=== PATIENT | male | born 1975 | race Caucasian/White ===

== ENCOUNTER 2023-12-04 20:20 | Inpatient (IN) | payer OTHER, SELFPAY ==
[2023-12-04] VITALS (8 sets, daily range): BP systolic 153–205; BP diastolic 85–110; BMI 35.1
--- NOTE | 2023-12-04 16:58 | ED.GENMED ---
History of Present Illness
General
Chief Complaint: Chest Pain
Source: patient
Exam Limitations: none
Time Seen by Provider: 12/04/23 16:45
Travel History
Have you had any contact with someone who has COVID-19?: No
Do you have any symptoms of coronavirus? Fever > 100 degrees, chills, cough, shortness of breath, sore throat, loss of taste or smell, muscle aches, or headache?: No
History of Present Illness
History of Present Illness:
See MDM
Past History
Past History
ED Past Medical History: HTN and NIDDM
ED Past Surgical History: None
Social History
Tobacco: Non-smoker
Alcohol: None
Phy Exam
Physical Exam
Physical Exam:
See MDM
Scores
Heart Score for Chest Pain Patients
STEMI patient?: No
History: Slightly or Non-Suspicious
ECG: Normal
Age: >45 - <65 years
Risk Factors: 1 or 2 Risk Factors
Troponin: </= Normal Limit
Heart Score for Chest Pain Patients: 2
Heart Score Risk: 2.5% MACE over next 6 weeks
Course
Orders/Labs/Results
Orders:
Orders
12/04/23 15:13
EKG [Electrocardiogram (*1)] Urgent
Reason for Study: Chest Pain
EKG- Treatment ONCE
12/04/23 16:58
CT Head W/o Iv Contrast Urgent
Comment:
Reason For Exam: unsteady gate, weakness
12/04/23 17:00
Complete Blood Count/With Diff Urgent
Comprehensive Metabolic Panel Urgent
Troponin I Urgent
12/04/23 18:29
HydrALAZINE [Apresoline] 10 mg IV NOW STA
12/04/23 19:09
Consult Neurology [NEUROLOGY CONSULT] Routine
Consulting Provider: Yandel Jamil
Was physician already notified: Yes
Abnormal Lab Results
12/04/23
17:00
MCV 77.6 L fL
(80.0-94.0)
Glucose 173 H mg/dl
(70-99)
12/04/23 17:00
12/04/23 17:00
Vital Signs
Initial and Last Documented VS:
Initial Vital Signs
Temp Pulse BP Pulse Ox
98 F 74 205/110 100
12/04/23 15:14 12/04/23 15:14 12/04/23 15:14 12/04/23 15:14
Last Documented Vital Signs
Temp Pulse Resp BP Pulse Ox
98 F 79 15 153/85 97
12/04/23 15:14 12/04/23 19:00 12/04/23 19:00 12/04/23 19:00 12/04/23 19:00
MDM/Problems Addressed
Differential Diagnosis Includes:
HPI and MDM Narrative:
48-year-old male presenting with chest pain and neurologic complaints. Patient states the chest pain is on the left side of his chest. There is no exertional component. Patient also complaining of an unsteady gait. Patient states he has been
walking and noticed that his legs have felt heavy. states he has had a wobbly gait for the past few days. Patient also complaining of dropping things when he was holding them. He denies headache. He is unsure if this is related to
uncontrolled diabetes
Given his history and complaint, will obtain basic blood work and CT head
Physical exam
General: Well appearing and non-toxic
HEENT: protecting airway
Neck: appears supple
CV: No evidence of cyanosis. Regular rate and rhythm
Resp: No accessory muscle use. Lungs clear
Abd: Non-distended
Extremities: No deformities
Neuro: alert. Decreased patellar reflexes bilaterally. Muscle strength and sensation intact to all 4 extremities. Negative Romberg
Psych: Normal affect
Skin: Intact
Problems Addressed including Acute and Chronic Conditions affecting care:
1. Chest pain
Acuity: acute
Prognosis: stable
Details: Will obtain troponin. EKG is nonischemic
2. Unsteady gait
Acuity: acute
Prognosis: stable
Details: Will obtain CT head and discussed case with neuro
3. Hypertension
Acuity: acute
Prognosis: unstable
Details: Patient given dose of IV hydralazine
Updates
Blood pressure improving with IV hydralazine. CT head negative. Case discussed with neurology. Will admit for MRI brain and C-spine
Differential Diagnosis (but not limited to): Guillain-Mejia� syndrome, MS, noncardiac chest pain
Testing considered: MRI brain
Drug therapy (if applicable): OTC meds, please see d/c instruction regarding Rx drugs
Amount and/or Complexity of Data Reviewed
Clinical info obtained from: Patient
External data reviewed: N/A
Labs I independently reviewed (but not limited to): Hyperglycemia
Radiology: The CT scan was personally and independently reviewed. In addition, official CT report reviewed.
Pulse Ox: not hypoxic
EKG independently reviewed: Sinus rhythm, normal axis, no STEMI
Supervisor Cell Operation: Sinus rhythm
Critical Care: The high probability of a clinically significant, sudden or life threatening deterioration of the cardiovascular system(s) required my full and direct attention, intervention and personal management. The aggregate critical care time
was 33 minutes. This time is in addition to time spent performing reported procedures but includes the following:
[x] Data Review and interpretation
[x] Patient assessment and monitoring of vital signs
[x] Documentation
[x] Medication orders and management
Risk of Complication:
Social Determinants of health: Good social support
Discussed with other providers: Neurology, hospitalist
Escalation of Care includes Admit/Obs: Given his exam and complaints, will admit for neurology evaluation and MRI
Occasional wrong word or 'sound a like' substitutions may have occurred due to the inherent limitations of voice recognition software. Read the chart carefully and recognize, using context, where substitutions have occurred.
*Critical Care Note
Total Time (30-74mins, 75-104mins- exclusive of procedures): 33 min
ED Attending Note
-
Portions of this chart may have been created with voice recognition software.� Occasional wrong word or��sound alike� substitutions may have occurred due to the inherent limitations of voice recognition software.
Discharge Plan
Departure
Patient Disposition: Admit
Date of Disposition: 12/04/23
Time of Disposition: 19:11
Admit to: Telemetry
Presentation/result/management discussed w/ accepting MD/DO: Hospitalist
Discharge Problem:
Abnormal gait, Benign essential HTN
Referrals:
Ector Miller MD [Family Provider] -
Interventions
Interventions:
*Risk Screen - Suicide Last Done: 12/04/23 16:56
*General Assessment Last Done: 12/04/23 16:56
*Neglect/Abuse Screening Last Done: 12/04/23 16:56
ED- Fall Risk Assessment Last Done: 12/04/23 16:58
*ED COVID-19 Vaccine History Last Done: 12/04/23 15:14
ED- Cardiac Assessment Last Done: 12/04/23 18:30
[2023-12-04 17:14] LABS: % Basophils 0.4 % (0-2); % Immature Granulocytes 0.5 % (0-0.5); % Lymphocytes 27.8 % (20.5-51.1); % Monocytes 5.1 % (1.7-9.3); % Neutrophils 61.2 % (42.2-75.2); Absolute Eosinophils 0.4 10^3/uL (0-0.7); Absolute Lymphocytes 2.1 10^3/uL (1.2-3.4); Absolute Monocytes 0.4 10^3/uL (0.1-0.6); Absolute Neutrophils 4.7 10^3/uL (1.4-6.5); Hematocrit 42.7 % (39.0-52.0); Hemoglobin 15.8 g/dL (13.0-18.0); Mean Corpuscular Hgb 28.7 pg (27.0-31.0); Mean Corpuscular Volume 77.6 fL (80.0-94.0); Mean Platelet Volume 10.1 fL (7.4-10.4); Nucleated Red Blood Cells % 0 % (-); Platelet Count 178 10^3/uL (130-400); Red Cell Dist. Width 12.4 % (11.5-14.5); White Blood Cell Count 7.6 10^3/uL (4.8-10.8)
[2023-12-04 17:34] LABS: ALT (SGPT) 28 U/L (0-50); AST (SGOT) 29 U/L (17-59); Albumin 4.7 g/dl (3.5-5.0); Alkaline Phosphatase 109 U/L (38-126); Blood Urea Nitrogen 10 mg/dl (9-20); Calcium 9.7 mg/dl (8.4-10.2); Carbon Dioxide 30 mmol/L (22-30); Chloride 103 mmol/L (98-107); Estimated Creatinine Clearance > 125 ml/min; Glucose 173 mg/dl (70-99); Sodium 138 mmol/L (135-145); Total Bilirubin 0.8 mg/dl (0.2-1.3); Total Protein 7.4 g/dl (6.3-8.2); eGFR > 60.00
[2023-12-04 17:39] LABS: Troponin I < 0.012 ng/ml
[2023-12-04] MEDS: APRESOLINE 10 MG IV (18:35)
--- NOTE | 2023-12-04 19:25 | HPS.HSE ---
Family Physician
-
Family Physician: Ector Miller
Chief Complaint
-
clumsy hands, intermittently dropping things
History of Present Illness
48M Diabetic pw several days of abnormal gait, clumsy hands , intermittently dropping things he was holding.
Legs feel heavy.
No recent infection.
Medical History
Past Medical History
Past Medical History: Reports HTN and NIDDM
Past Surgical History: Reports None
Social History
Tobacco: Non-smoker
Alcohol: None
Family History
Family History: Not pertinent
Allergies / Home Medications
Allergies reflects when Allergies were last updated in [facility].
Home Medications with original date entered in [facility]
Allergy/Medication List:
Allergies
Allergy/AdvReac Type Severity Reaction Status Date / Time
dog dander Allergy nasal Verified 12/04/23 15:20
congestion
seasonal Allergy nasal Uncoded 12/04/23 15:20
congestion
If medication reconciliation has not been performed, why?: Medication List N/A
Review of Systems
-
Constitutional: Reports No Symptoms
EENT: Reports No Symptoms
Respiratory: Reports No Symptoms
Cardiac: Reports No Symptoms
Abdomen/GI: Reports No Symptoms
: Reports No Symptoms
Musculoskeletal: Reports No Symptoms
Skin: Reports No Symptoms
Neurological: Reports See HPI
Endocrine: Reports No Symptoms
Hematologic/Lymphatic: Reports No Symptoms
Psych: Reports No Symptoms
Physical Exam
Vital Signs
Vital Signs
Temp Pulse Resp BP Pulse Ox
98 F 79 15 153/85 97
12/04/23 15:14 12/04/23 19:00 12/04/23 19:00 12/04/23 19:00 12/04/23 19:00
Physical Exam
General: Other (see below )
Laboratory Results
-
12/04/23 17:00
12/04/23 17:00
Laboratory Results
Total Bilirubin 0.8 mg/dl (0.2-1.3) 12/04/23 17:00
AST 29 U/L (17-59) 12/04/23 17:00
ALT 28 U/L (0-50) 12/04/23 17:00
Alkaline Phosphatase 109 U/L (38-126) 12/04/23 17:00
Troponin I < 0.012 ng/ml 12/04/23 17:00
Data Reviewed
-
CT Scan: Report Reviewed by me
Lab Data: Labs Reviewed by me
Impression/Plan
-
Reviewed VS: Unremarkable, noted BP 155/85
PE
Gen: NAD, not toxic looking
HEENT: anicteric, no pale conjuctiva
Neck: supple , no cx spine tenderness
Lungs: symmetric AE, no added sound
Cor: RRR S1 S2 , no mm
Abdomen: + central obesity
GROCERY BUYER: Muscle strength and sensation intact to all 4 extremities.Decreased patellar reflexes bilaterally. . Neg Rhomberg.
Gait: wide base gait
MS: no edema
Psych: appropriate
Data
nl CBC
Low MCV 77
nl BMP
nl LFTs
NE TPNI EKG ; NSR, nl EKG , no prior EKG
BG 170s
HCT
No acute intracranial abnormality noted.
ASSESSMENT & PLAN
No prior hospitalist admission
Pending Rx reconciliation
Abnormal gait, clumsy hands , intermittently dropping things -NEG HCT , unremarkable labs
DDX: Neuropathy, Radiculopathy, myelopathy vs CVA
HX chronic Cx spine pain
- start empiric baby ASA daily
- cont CABLE TELEVISION TECHNICIAN Rosuvastatin and Lisinopril
- Brain and Cx spine MRI in AM
- Labs for AM; CRP, ESR, Syphillis progressive
- PT/OT
- Neuro consult
Hyperglycemia
DMT2 on Januvia
- add ISS low
- cont CABLE TELEVISION TECHNICIAN Januvia 100 mg daily
- A1 C
HLD
- cont CABLE TELEVISION TECHNICIAN Rosuvastatin
Essential HTN
- cont CABLE TELEVISION TECHNICIAN Lisinopril 10 daily - recntly incresed by PCP from 5 mg daily
Microcytic , but not anemic
- Ferritin and Fe studies
- B12 and Folate to complete w/u but - unlikely etiolgy in view of microcytosis
Class II ( BMI 35 ) obesity on Wt loosing diet
Suspect metabolic syndrome X
DVT Px: LMWH
Code: Full
Obs TLM
[2023-12-04 21:30] LABS: Glucose - Point of Care 172 mg/dl (70-99)
--- NOTE | 2023-12-04 22:20 | PTCARENOTE ---
Rec'd pt from the ER. Walked from stretcher to the bed with standby assist. NIH performed and score of 0 was obtained. He is awake and alert. denies pain. SCDs applied as ordered. Plan for MRI tomorrow. Will continue to monitor closely.
[2023-12-05] VITALS (8 sets, daily range): BP systolic 138–171; BP diastolic 78–109; PULSE 91–93; O2SAT 97
[2023-12-05 07:50] LABS: Glucose - Point of Care 185 mg/dl (70-99)
--- NOTE | 2023-12-05 09:00 | W.PN.HOSP.TC ---
Today's Communication/Plan
-
see bold
Assessment / Plan
Assessment / Plan
#Subacute lacunar infarct
#Abnormal gait
Appreciate neurology input, brain MRI shows 1 cm nonhemorrhagic subacute lacunar infarct and 5 mm cryptic AVM in the right parietal white matter
Neurology recommends Plavix for 21 days, and aspirin 81 mg daily indefinitely
Hemoglobin A1c 10.5, LDL 69
Continue home Crestor, check MRA of the head without contrast and MRA of neck, check echocardiogram
PT/OT
#Uncontrolled type 2 diabetes
Hemoglobin A1c is 10.5
His blood sugars are in the 170s-180s on a carb controlled diet and januvia
Suspect he is noncompliant with diet
Continue Januvia, add glipizide
#Benign essential hypertension
Continue lisinopril 10 mg daily
#Obesity due to excess calories
BMI 35, affects all aspects of care
DVT prophylaxis�Lovenox
Full code
Physical Exam
General: Obese, no acute distress
HEENT: Normocephalic, Atraumatic, EOMI, MMM
Respiratory: Clear to Auscultation bilaterally
Cardiac: Normal S1/S2, Regular Rate and Rhythm
GI: Soft, Nontender, Nondistended, Normal Bowel Sounds
Extremities: No Clubbing, Cyanosis, or Edema
Anticipated Discharge: 24 - 48 hours
Subjective/Interval History
-
Date of Service: December 05, 2023
Patient reports not feeling himself. Gait continues to be off, and he feels weak in his lower extremities.
Objective Data
-
Vital Signs:
Vital Signs
Temp Pulse Resp BP Pulse Ox
98.2 F 82 18 152/80 97
12/05/23 03:10 12/05/23 03:10 12/05/23 03:10 12/05/23 03:10 02/03/24 03:10
I&O
12/04/23 12/05/23 12/06/23
06:59 06:59 06:59
Intake Total 720 / 720
Balance 720 / 720
[2023-12-05] MEDS: ZESTRIL 10 MG PO (09:01)
[2023-12-05] MEDS: JANUVIA 100 MG PO (09:01)
[2023-12-05] MEDS: LOW STRENGTH ASPIRIN 81 MG PO (09:01)
[2023-12-05] MEDS: NOVOLOG FLEXPEN-LOW RESISTANCE 1 UNITS SC ×2 (09:05→13:41)
[2023-12-05 09:23] LABS: HDL Cholesterol 41 mg/dl; Iron 100 ug/dl (49-181); LDL Cholesterol, Calculated 69 mg/dl; Total Cholesterol 137 mg/dl (50-199); Triglyceride 135 mg/dl (10-149); Very Low Density Lipoprotein 27 mg/dl (0-30)
--- NOTE | 2023-12-05 09:28 | PTCARENOTE ---
Assumed care of pt from previous nurse. pt denies pain. Pt NIH 0. Pt is on tele running nsr. Pt call davis is within reach, pt rings vinnie. will cont to monitor.
[2023-12-05 09:33] LABS: C-Reactive Protein < 5.00 mg/L (0.0-10.00); Percent Saturation 31 % (20-50); Total Iron Binding Capacity 315 ug/dl (261-462)
[2023-12-05 10:39] LABS: Folate > 20.0 ng/ml (2.76-20); Vitamin B12 705 pg/ml (239-931)
[2023-12-05 10:49] LABS: Erythrocyte Sed Rate 15 mm/hour (0-20)
[2023-12-05 11:03] LABS: Glycohemoglobin (HgbA1c) 10.5 % (4.0-5.6)
--- NOTE | 2023-12-05 11:55 | CON.NEURO4 ---
Consultation - Neurology 4
-
CONSULTING PHYSICIAN: Azeem Jamil
REFERRING PHYSICIAN: ER/Hospitalist
DICTATED BY: Azeem Jamil
DATE/TIME OF REQUEST: 12/05/23
DATE/TIME OF CONSULTATION: 12/05/23
Reason for Consultation: Sudden onset gait issues, then left hand weakness and difficulty writing
History of Present Illness:
Patient is a left handed 48-year-old male with a past medical history of kol-efbjsqt-[id number] diabetes mellitus, hypertension presented to hospital because of gait abnormalities as well as left hand incoordination and writing difficulty starting in
the middle of this past week.
Patient had been in his normal state of health until Thursday. He was working at home sitting down and he stood up and then suddenly had a sense of imbalance and that something was off with his walking ability. There is no back pain or neck pain
and no trauma with this, seem to have a bit of off balance for the rest in bed but otherwise felt fine. On the next day he began to notice that his left hand and arm began to feel somewhat strange with some numbness on the left pinky, difficulty
writing and then sometimes some occasional cramping of the left hand. He notes that he persistently still has abnormal writing with the left hand.
There has not been any speech change, acute vision change, no recent head or neck trauma.
He does report fairly frequent lower occipital area headaches which she will take NSAIDs for.
Reports he had a fall slipping on some acorns walking his dog in September and a couple of weeks after this he began to have some burning paresthesia in the right arm and leg but this abated with some meloxicam required by his PCP. No history of any
spine issues. No recent bowel or bladder function changes these have been normal.
Patient reports having diabetes and does take oral medications for this, to his knowledge does not have any complications of diabetes to the retina kidneys or any neuropathy, he had had lisinopril increased recently from 5 mg to 10 mg.
Blood pressure has been high in the ER in the low 200s systolic and 180 systolic here while admitted.
Patient has no history of stroke or heart issues.
Past Medical History: Non insulin dependent diabetes mellitus, hypertension
Surgical History: Ankle fracture repair at young age
Family History: No early CAD/NH or early stroke, grandfather with stroke and heart issues at elderly age
Social History: and lives with his , works as dental insurance coordinator, no tobacco, no significant alcohol
Allergies: No known drug allergies
Home Medications:
Review of Symptoms:
Patient denies any fever, headache, chest pain, shortness of breath, GI or symptoms.
Physical Exam:
Well-appearing middle-aged man appears his stated age, pleasant well-groomed well-nourished, no trauma to the head or neck eyes clear oropharynx is clear, neck supple full range of motion, Spurling maneuver negative, heart rate regular breathing
unlabored abdomen soft nontender no lower extremity edema
Neurologic Examination:
The patient is awake, alert and oriented x 3. He is able to follow commands and answer questions appropriately. There is no aphasia or dysarthria. On cranial nerve assessment, pupils are 3 mm bilateral, round and reactive to light and
accommodation. Visual byrd are full. Extraocular movements are intact. Facial sensations are intact and bilaterally symmetrical, there is no facial asymmetry. Hearing is intact bilaterally to normal conversation volume. Tongue palate and uvula
are midline. Sternocleidomastoid strengths are full bilaterally. Motor strengths are 5/5 bilateral upper and lower extremities on medical research [place] scale. There is no drift or involuntary movement noted. Deep tendon reflexes are 2+ bilateral
upper and lower extremities and Babinski is absent bilaterally. Sensations of pain, touch, temperature and vibration are intact and bilaterally symmetrical. There was no extinction noted on double simultaneous stimulation. Coordination is intact by
finger to nose bilaterally. Rhomberg negative.
Neuro Imaging:
CT head noncontrast unremarkable
MRI brain demonstrates an acute ischemic infarct in the right basal ganglia no hemorrhage no other chronic or acute infarcts
MRI cervical spine with no abnormal contrast-enhancement no intrinsic lesion of the cervical spine no significant cord compression is seen
Impressions
1. Acute ischemic stroke of the right basal ganglia with symptoms for starting on 12/02, then developing left hand writing difficulties and incoordination due to the stroke. Most likely etiology small vessel disease given characteristic location
in the basal ganglia, uncontrolled diabetes mellitus as well as history of hypertension.
2. History of diabetes mellitus hemoglobin A1c 10.5
3. History of essential hypertension
4.
Recommendations:
1. Goal normotension
2. Give Plavix 300 mg once now. Plan for 21 days of DAPT therapy with aspirin 81 mg daily indefinitely afterwards
3. Would start atorvastatin 10 mg daily at night
4. Neurologic checks and NIH stroke scale
5. Physical therapy occupational therapy evaluation
6. Diabetic education and diet education
7. Monitor on cardiac telemetry and check TTE
8. Not going to recommend KENNETH unless there is severe abnormalities on TTE and not going to recommend bubble study as I feel that uncontrolled diabetes mellitus and hypertension are sufficient explanations for the infarct
9. Stressed the importance of improving diabetes and blood pressure
10. Check MRA of the head without contrast and MRA of neck with contrast
Will follow
Discussed patient care with: Patient and Dr Do
NIH Stroke Score
Subsequent NIH Scale
Date of Subsequent NIH Scale: 12/05/23
Time of Subsequent NIH Scale: 11:57
NIH Stroke Score
Level of Consciousness: 0 - Alert
LOC Questions: 0-Answers both correctly
LOC Commands: 0-Performs both correctly
Best Horizontal Gaze: 0-Normal
Visual Byrd: 0=Normal, no visual loss
Facial Palsy: 0=Normal, symmetrical
Motor - Right Arm: 0=No drift 10 seconds
Motor - Left Arm: 0=No drift 10 seconds
Motor - Right Le-No drift 5 seconds
Motor - Left Le-No drift 5 seconds
Limb Ataxia: 0-Absent
Sensation: 0-Normal
Best Language: 0-No aphasia
Dysarthria: 0-Normal
Extinction and Inattention: 0-No abnormality
Total Score:: 0
[2023-12-05] MEDS: PLAVIX 300 MG PO (12:47)
[2023-12-05] MEDS: MOTRIN 800 MG PO (13:22)
[2023-12-05 13:27] LABS: Glucose - Point of Care 176 mg/dl (70-99)
[2023-12-05 17:01] LABS: Glucose - Point of Care 303 mg/dl (70-99)
[2023-12-05 17:04] LABS: Glucose - Point of Care 273 mg/dl (70-99)
[2023-12-05] MEDS: GLUCOTROL 5 MG PO (18:08)
[2023-12-05] MEDS: CRESTOR 10 MG PO (18:08)
[2023-12-05] MEDS: LOVENOX 40 MG SC (18:09)
[2023-12-05] MEDS: NOVOLOG FLEXPEN-LOW RESISTANCE 3 UNITS SC (18:11)
[2023-12-05] MEDS: PEPCID 20 MG PO (19:45)
[2023-12-05 21:40] LABS: Glucose - Point of Care 162 mg/dl (70-99)
[2023-12-06] VITALS (7 sets, daily range): BP systolic 131–166; BP diastolic 80–104
[2023-12-06 07:33] LABS: Glucose - Point of Care 165 mg/dl (70-99)
[2023-12-06] MEDS: LOW STRENGTH ASPIRIN 81 MG PO (08:18)
[2023-12-06] MEDS: GLUCOTROL 5 MG PO (08:18)
[2023-12-06] MEDS: ZESTRIL 10 MG PO ×2 (08:19→15:35)
[2023-12-06] MEDS: PEPCID 20 MG PO (08:19)
[2023-12-06] MEDS: JANUVIA 100 MG PO (08:19)
[2023-12-06] MEDS: PLAVIX 75 MG PO (08:19)
[2023-12-06] MEDS: NOVOLOG FLEXPEN-LOW RESISTANCE 1 UNITS SC ×3 (08:23→17:32)
--- NOTE | 2023-12-06 08:35 | W.PN.HOSP.TC ---
Addendum entered and electronically signed by Med Santana MD 12/06/23 17:37:
Patient does not tolerate metformin, will discontinue.
Original Note:
Today's Communication/Plan
-
See bold
Assessment / Plan
Assessment / Plan
#Subacute lacunar infarct
#Abnormal gait
Appreciate neurology input, brain MRI shows 1 cm nonhemorrhagic subacute lacunar infarct and 5 mm cryptic AVM in the right parietal white matter
Neurology recommends Plavix for 21 days through 12/25/23, and aspirin 81 mg daily indefinitely
Hemoglobin A1c 10.5, LDL 69
Continue home Crestor (dose increased from 5 mg to 10 mg)
MRA of the head/neck neg, check echocardiogram
PT/OT - indep
#Uncontrolled type 2 diabetes
Hemoglobin A1c is 10.5
His blood sugars are in the 170s-180s on a carb controlled diet and januvia
Suspect he is noncompliant with diet
Continue Januvia, added glipizide 5 mg bid 2/
Increase glipizide to 10 mg bid, add metformin 500 mg bid /
Consult diabetes nurse practitioner for education
# Hypertensive urgency
Blood pressure 205/110 upon admission, currently improved today at 166/104
Increase lisinopril to 20 mg daily, add amlodipine 10 mg HS
Titrate blood pressure medications as necessary
#Obesity due to excess calories
BMI 35, affects all aspects of care
DVT prophylaxis�SQ Lovenox
Full code
Total time spent to see the patient on the floor, examine the patient, review data and lab results, discuss treatment plan with patient, nursing staff around 51 minutes.
Physical Exam
General: Obese, no acute distress
HEENT: Normocephalic, Atraumatic, EOMI, MMM
Respiratory: Clear to Auscultation bilaterally
Cardiac: Normal S1/S2, Regular Rate and Rhythm
GI: Soft, Nontender, Nondistended, Normal Bowel Sounds
Extremities: No Clubbing, Cyanosis, or Edema
Anticipated Discharge: Within 24 hours
Subjective/Interval History
-
Date of Service: December 06, 2023
Patient reports feeling better.
Objective Data
-
Vital Signs:
Vital Signs
Temp Pulse Resp BP Pulse Ox
97.6 F 72 18 147/88 97
12/06/23 03:44 12/06/23 08:19 12/06/23 03:44 12/06/23 08:19 12/06/23 03:44
I&O
12/05/23 12/06/23 12/07/23
06:59 06:59 06:59
Intake Total 720 / 720 720 / 720
Balance 720 / 720 720 / 720
--- NOTE | 2023-12-06 09:40 | PTCARENOTE ---
Assumed care of pt from previous nurse. Pt denies pain. pt NIH is 0. Pt call davis is within reach, pt rings vinnie. will cont to monitor.
[2023-12-06 12:27] LABS: Glucose - Point of Care 183 mg/dl (70-99)
--- NOTE | 2023-12-06 12:52 | W.PN.NEURO.1 ---
Today's Communication / Plan
-
-DAPT therapy 21 days then aspirin 81 mg daily indefinitely
-Rosuvastatin 10 mg
-Educated on diet diabetes control exercise
-Neurologic checks NIH stroke scale
-Goal normotension
-Cardiac telemetry and check TTE tomorrow
Will follow
Neuro Assessment/Plan
Assessment
1.� � Acute ischemic stroke of the right basal ganglia with symptoms for starting on 12/02, then developing left hand writing difficulties and incoordination due to the stroke.� Most likely etiology small vessel disease given characteristic location
in the basal ganglia, uncontrolled diabetes mellitus as well as history of hypertension.
2.� History of diabetes mellitus hemoglobin A1c 10.5
3.� History of essential hypertension
MRI brain with right basal ganglia acute infarct
MRA head and neck no significant cervical or intracranial stenosis occlusion aneurysm or dissection
Subjective/Objective
Subjective Data
Date of Service: December 06, 2023
No acute events, feeling well, practicing handwriting on the left hand
Objective Data
Vital Signs
Temp Pulse Resp BP Pulse Ox
98.0 F 87 18 166/104 98
12/06/23 11:00 12/06/23 11:00 12/06/23 11:00 12/06/23 11:00 12/06/23 11:00
Lab Results
12/04/23 17:00
12/04/23 17:00
Sodium 138 mmol/L (135-145) 12/04/23 17:00
Potassium 4.0 mmol/L (3.5-5.1) 12/04/23 17:00
BUN 10 mg/dl (9-20) 12/04/23 17:00
Glucose 173 mg/dl (70-99) H 12/04/23 17:00
Calcium 9.7 mg/dl (8.4-10.2) 12/04/23 17:00
LDL Cholesterol, Calc 69 mg/dl 12/05/23 08:31
Vitamin B12 705 pg/ml (917-321) 12/05/23 08:31
Patient Allergies
dog dander Allergy (Verified 12/04/23 15:20)
nasal congestion
seasonal Allergy (Uncoded 12/04/23 15:20)
nasal congestion
LDL Level: >70, statin ordered
Review of Systems
-
History Source: Patient
All other systems: Reviewed and negative
Constitutional: No Symptoms
EENT: No Symptoms Reported
Respiratory: No Symptoms
Cardiac: No Symptoms
Abdomen/GI: No Symptoms
Genitourinary: No Symptoms
Musculoskeletal: No Symptoms
Skin: No Symptoms
Neuro: No Symptoms
Endocrine: No Symptoms
Hematologic / Lymphatic: No Symptoms
Allergy / Immunology: No Symptoms
Physical Exam
-
General: Comfortable
Eyes: No Ptosis
HEENT: Normocephalic
Neck: No Bruits Bilaterally
Respiratory: Clear to Auscultation
Cardiac: Regular Rhythm
GI: Normal Bowel Sounds
Skin: Unremarkable
Extremities: No Clubbing
Psych: Unremarkable
Extended Neurological Exam
Mood & Affect: Mood Unremarkable and Affect Unremarkable
Attention Span & Concentration: Awake, Alert and Interactive
Memory: Unremarkable
Tremor: Hand Tremor Absent
Involuntary Movement: None
Speech: Quality Unremarkable and Quantity Unremarkable; Negative Expressive Aphasia, Receptive Aphasia or Dysarthric
Cranial Nerve II: Left Eye: Pupillary Reactivity Unremarkable, Pupillary Size Unremarkable and Visual Byrd Intact
Cranial Nerve II: Right Eye: Pupillary Reactivity Unremarkable, Pupillary Size Unremarkable and Visual Byrd Intact
Cranial Nerves III, IV, : Extraocular Movement: Extraocular Movement Full in all Directions
Cranial Nerve VII: Facial Symmetry: Normal Facial Symmetry
Cranial Nerve VIII: Hearing: Unremarkable Hearing to Normal Conversational Volume
Muscle Strength, Overall: Full Throughout
Muscle Bulk & Tone: Bulk Unremarkable
Pronator Drift: No Drift in Upper Extremities
Vibration Sensation: Unremarkable
Touch Sensation: Testing in Upper Extremities
Coordination: [id number] Testing Unremarkable
Modified Fillmore Score (MRS)
-
MRS Score:
Data Reviewed
-
CT Head: Report Reviewed and Image Reviewed
MRI Head: Report Reviewed and Image Reviewed
MRA Head: Image Reviewed
MRA Neck: Image Reviewed
Echocardiogram: Ordered and Pending
Labs: Report Reviewed
Lipid Profile: Report Reviewed
HgbA1C: Report Reviewed
--- NOTE | 2023-12-06 13:27 | CM ---
Addendum entered by Kellie Rich 12/06/23 13:32:
Per TT to MD, plan to switch to inpatient.
Original Note:
Patient seen bedside.
IA completed.
Patient lives with spouse in a 2 story home.
Independent prior to admission.
Ambulating in the halls.
No d/c needs anticipated.
PCP: Dr Miller
Pharmacy:[facility]
Plan: home no needs.
[2023-12-06] MEDS: GLUCOTROL 10 MG PO (15:32)
[2023-12-06] MEDS: NORVASC 10 MG PO (15:36)
[2023-12-06 16:57] LABS: Glucose - Point of Care 196 mg/dl (70-99)
[2023-12-06] MEDS: LOVENOX 40 MG SC (17:30)
[2023-12-06] MEDS: CRESTOR 10 MG PO (17:30)
[2023-12-06] MEDS: GLUCOTROL PO ×2 (17:31→17:36)
[2023-12-06 21:15] LABS: Glucose - Point of Care 154 mg/dl (70-99)
[2023-12-07 03:30] VITALS: BP 119/72
--- NOTE | 2023-12-07 06:52 | W.PN.NEURO.1 ---
Today's Communication / Plan
-
-21 days DAPT then aspirin
-Rosuvastatin 10 mg daily
-Check TTE
-Discussed working on diet, exercise, diabetes control
-Cardiac telemetry while inpatient, not recommending any outpatient cardiac monitoring
-Neurology follow up in 4 weeks
-No barriers to discharge from my standpoints
Will sign off call with questions and concerns
Neuro Assessment/Plan
Assessment
1.� � Acute ischemic stroke of the right basal ganglia with symptoms for starting on 12/02, then developing left hand writing difficulties and incoordination due to the stroke.� Most likely etiology small vessel disease given characteristic location
in the basal ganglia, uncontrolled diabetes mellitus as well as history of hypertension.
2.� History of diabetes mellitus hemoglobin A1c 10.5
3.� History of essential hypertension
MRI brain with right basal ganglia acute infarct
MRA head and neck no significant cervical or intracranial stenosis occlusion aneurysm or dissection
Subjective/Objective
Subjective Data
Date of Service: December 07, 2023
No acute events, discussed stroke prevention, follow up, medications, diabetes control
Objective Data
Vital Signs
Temp Pulse Resp BP Pulse Ox
97.8 F 71 16 119/72 96
12/07/23 03:30 12/07/23 03:30 12/07/23 03:30 12/07/23 03:30 12/07/23 03:30
Lab Results
12/04/23 17:00
12/04/23 17:00
Sodium 138 mmol/L (135-145) 12/04/23 17:00
Potassium 4.0 mmol/L (3.5-5.1) 12/04/23 17:00
BUN 10 mg/dl (9-20) 12/04/23 17:00
Glucose 173 mg/dl (70-99) H 12/04/23 17:00
Calcium 9.7 mg/dl (8.4-10.2) 12/04/23 17:00
LDL Cholesterol, Calc 69 mg/dl 12/05/23 08:31
Vitamin B12 705 pg/ml (868-906) 12/05/23 08:31
Patient Allergies
dog dander Allergy (Verified 12/04/23 15:20)
nasal congestion
seasonal Allergy (Uncoded 12/04/23 15:20)
nasal congestion
LDL Level: <70, continue statin
Review of Systems
-
History Source: Patient
All other systems: Reviewed and negative
Constitutional: No Symptoms
EENT: No Symptoms Reported
Respiratory: No Symptoms
Cardiac: No Symptoms
Abdomen/GI: No Symptoms
Genitourinary: No Symptoms
Musculoskeletal: No Symptoms
Skin: No Symptoms
Neuro: Weakness and See existing Neuro Note
Endocrine: No Symptoms
Hematologic / Lymphatic: No Symptoms
Allergy / Immunology: No Symptoms
Physical Exam
-
General: Comfortable
Eyes: No Ptosis
HEENT: Normocephalic
Neck: No Bruits Bilaterally
Respiratory: Clear to Auscultation
Cardiac: Regular Rhythm
GI: Normal Bowel Sounds
Skin: Unremarkable
Extremities: No Clubbing
Psych: Unremarkable
Extended Neurological Exam
Mood & Affect: Mood Unremarkable
Attention Span & Concentration: Awake, Alert and Interactive
Memory: Unremarkable
Tremor: Hand Tremor Absent
Involuntary Movement: None
Speech: Quality Unremarkable, Quantity Unremarkable and Dysarthric; Negative Expressive Aphasia or Receptive Aphasia
Cranial Nerve II: Left Eye: Pupillary Reactivity Unremarkable, Pupillary Size Unremarkable and Visual Byrd Intact
Cranial Nerve II: Right Eye: Pupillary Reactivity Unremarkable, Pupillary Size Unremarkable and Visual Byrd Intact
Cranial Nerves III, IV, : Extraocular Movement: Extraocular Movement Full in all Directions
Cranial Nerve VII: Facial Symmetry: Normal Facial Symmetry
Cranial Nerve VIII: Hearing: Unremarkable Hearing to Normal Conversational Volume
Muscle Strength, Overall: Full Throughout
Muscle Bulk & Tone: Bulk Unremarkable
Deep Tendon Reflexes: Trace Throughout
Touch Sensation: Testing in Upper Extremities
Coordination: Other (Minor left hand fine finger and rapid wrist and hand movement abnormality, no ataxia)
Babinski Sign: Absent Bilaterally
Modified Early Score (MRS)
-
MRS Score:
Data Reviewed
-
CT Head: Report Reviewed and Image Reviewed
MRI Head: Report Reviewed and Image Reviewed
MRA Head: Report Reviewed and Image Reviewed
MRA Neck: Report Reviewed and Image Reviewed
Echocardiogram: Ordered and Pending
[2023-12-07 07:30] VITALS: BP 156/96
[2023-12-07] MEDS: ZESTRIL 20 MG PO (08:09)
[2023-12-07] MEDS: GLUCOTROL 10 MG PO (08:09)
[2023-12-07] MEDS: NORVASC 10 MG PO (08:09)
[2023-12-07] MEDS: JANUVIA 100 MG PO (08:09)
[2023-12-07] MEDS: PEPCID 20 MG PO (08:09)
[2023-12-07] MEDS: PLAVIX 75 MG PO (08:09)
[2023-12-07] MEDS: LOW STRENGTH ASPIRIN 81 MG PO (08:09)
[2023-12-07 08:13] LABS: Glucose - Point of Care 173 mg/dl (70-99)
[2023-12-07] MEDS: NOVOLOG FLEXPEN-LOW RESISTANCE 1 UNITS SC ×2 (08:13→11:45)
--- NOTE | 2023-12-07 09:54 | W.DS.TRANS ---
DC Summary - Clinical Laboratory Manager
-
Discharge Instructions:
Discharge Diagnosis/Procedures Acute stroke, hypertensive urgency, uncontrolled
type 2 diabetes, obesity
Diet Diabetic, Carb Controlled,Low Cholesterol,Low
Fat
Activity As tolerated
Driving Restrictions As prior to admission
Instructions:
Stand-Alone Forms:
Changes to Home Medications: Yes
Discharge Medications:
DC Medications w/[facility]
cholecalciferol (vitamin D3) 25 mcg (1,000 unit) tablet (Vitamin D3) 25 mcg PO DAILY 12/04/23
famotidine 20 mg tablet (Pepcid) 20 mg PO DAILY 12/04/23
sitagliptin phosphate 100 mg tablet (Januvia) 100 mg PO DAILY 12/04/23
therapeutic multivitamin 1 tab PO DAILY 12/04/23
amlodipine 10 mg tablet 10 mg PO DAILY #30 tabs 12/07/23
aspirin 81 mg chewable tablet (Children's Aspirin) 81 mg PO DAILY #30 tabs 12/07/23
clopidogrel 75 mg tablet 75 mg PO DAILY #20 tabs 12/07/23
glipizide 10 mg tablet 10 mg PO BID@0800,1700 #60 tabs 12/07/23
lisinopril 20 mg tablet 20 mg PO DAILY #30 tabs 12/07/23
rosuvastatin 10 mg tablet 10 mg PO QPM #30 tabs 12/07/23
Home Medication Changes
amlodipine 10 mg tablet 10 mg PO DAILY #30 tabs 12/07/23
aspirin 81 mg chewable tablet (Children's Aspirin) 81 mg PO DAILY #30 tabs 12/07/23
clopidogrel 75 mg tablet 75 mg PO DAILY #20 tabs 12/07/23
glipizide 10 mg tablet 10 mg PO BID@0800,1700 #60 tabs 12/07/23
lisinopril 20 mg tablet 20 mg PO DAILY #30 tabs 12/07/23
rosuvastatin 10 mg tablet 10 mg PO QPM #30 tabs 12/07/23
Pending Results: No
Total time spent discharging patient (in min): 45
--- NOTE | 2023-12-07 11:20 | CM ---
Patient seen bedside, reports no concerns at this time. Patient reports he would like his to be present at discharge so she can hear discharge recommendations/needs going home. Per nurse, awaiting echo results. CM will continue to follow for
discharge planning needs.
Plan; home with spouse.
[2023-12-07 11:40] LABS: Glucose - Point of Care 182 mg/dl (70-99)
--- NOTE | 2023-12-07 12:47 | W.DCSUMMARY ---
Discharge Summary
Discharge Data
Date of Admission: 12/04/23
Date of Discharge: 12/07/23
-
Pending Results: No
Hospital Course
Patient is a 48-year-old diabetic male with several days of abnormal gait clumsy hand coordination and dropping objects. He was admitted under a stroke protocol he did not meet criteria for thrombolytic therapy please see dictated H&P and neurology
consult for specifics on presentation prior
CT of the head noncontrast was unremarkable and MRI of the brain showed an acute ischemic infarct involving the right basal ganglia without hemorrhage and no chronic or acute infarcts otherwise were noted an MRI of the cervical spine showed no
abnormal contrast-enhancement nor intrinsic lesion of the cervical spine or cord compression/of note MRI of the head and neck was also unremarkable and with his presentation of hypertensive urgency on presentation patient's lisinopril was increased
to 20 mg daily with the addition of amlodipine 10 mg at bedtime and this was called in local pharmacy also increase his glipizide to 10 mg twice a day tried to add metformin but he was intolerant apparently has had previous intolerance to metformin
in the past. Consultation with the diabetic nurse practitioner for education was also undertaken.
Patient's glycosylated hemoglobin was elevated at 10.5 seen and evaluated by the neurology service with recommendation for dual antiplatelet therapy for 21 days then aspirin thereafter indefinitely increasing loop rosuvastatin he had been taking
prior from 5 to 10 mg daily with continued neurochecks on a stroke scale during hospitalization. No definitive arrhythmic events during telemetry status and none recommended as outpatient for monitoring. A check of a transthoracic echocardiogram
is still pending at time of this patient's discharge and will be added there is no barriers to discharge from the standpoint of neurology he underwent PT OT modalities and the patient is now fully ambulatory without deficits.
Discharge diagnosis will be acute ischemic stroke of the right basal ganglia/poorly controlled diabetes mellitus hypertensive urgency on presentation
Discharge Plan
-
Patient Disposition: Home (Routine Discharge)
Discharge Diagnosis/Procedures: Acute stroke, hypertensive urgency, uncontrolled type 2 diabetes, obesity
Condition: Good
Diet: Low Fat, Low Cholesterol and Diabetic, Carb Controlled
Activity: As tolerated
Driving Restrictions: As prior to admission
Activity Restrictions/Additional Instructions:
Neurology recommends Plavix for 21 days through 12/26/23.
Take aspirin 81 mg daily.
You were glipizide for your diabetes.
Follow-up with your primary care doctor in 1 week, neurology in 4 weeks.
Referrals:
Re Sandy CRNP [Specified Professional Personl] - in three to four weeks
Ector Miller MD [Family Provider] - in one week
Prescriptions:
New
lisinopril 20 mg Tablet
20 mg PO DAILY Qty: 30 0RF
glipizide 10 mg Tablet
10 mg PO BID@0800,1700 Qty: 60 0RF
clopidogrel 75 mg Tablet
75 mg PO DAILY Qty: 20 0RF
aspirin [Children's Aspirin] 81 mg Tablet,Chewable
81 mg PO DAILY Qty: 30 0RF
rosuvastatin 10 mg Tablet
10 mg PO QPM Qty: 30 0RF
amlodipine 10 mg Tablet
10 mg PO DAILY Qty: 30 0RF
Continued
therapeutic multivitamin Tablet
1 tab PO DAILY
famotidine [Pepcid] 20 mg Tablet
20 mg PO DAILY
cholecalciferol (vitamin D3) [Vitamin D3] 25 mcg (1,000 unit) Tablet
25 mcg PO DAILY
Januvia 100 mg Tablet
100 mg PO DAILY
Discontinued
lisinopril 10 mg Tablet
10 mg PO DAILY
ibuprofen [Advil] 200 mg Tablet
400 mg PO Q6HPRN PRN (Reason: mild pain)
rosuvastatin [Crestor] 5 mg Tablet
5 mg PO QPM
Discharge Orders:
Discharge Patient (As Directed); Ordered 12/07/23
Ordered By: Francois Rivas
--- NOTE | 2023-12-07 15:30 | PTCARENOTE ---
Diabetes Education- Shyam states approximately 10 year history of T2DM. Taking Januvia 100 mg QD and has been compliant with taking. He has tested in the past and was able to bring his A1C to 6.5% and then became more non chalent in his eating and
exercise. This has been a wake up call with recent A1C 10.5%, he purchased an [employer] glucometer, has changed his eating (currently participating in [employer]) and started exercising. Reviewed proper testing technique, sites and expected results.
Discussed eating healthy and information given on outpt DSME classes. He is motivated to make lifestyle changes. Glipizide being added at discharge, discussed action and side effects.
--- NOTE | 2023-12-07 15:35 | PTOTSP ---
Chart reviewed. Previous PT evaluated and discharged patient as he did not demonstrate need for further skilled therapy and is independent.
If needs change, please re-consult.
[2023-12-08 16:43] LABS: Syphilis/T. pallidum Ab Reflex Negative (Negative)
== END 2023-12-07 16:44 | disposition home or self-care (01) | DRG 66 ==
LOC: 4 WEST ACU 20:20
PROVIDERS: ADMITTING PHYSICIAN Internal Medicine; ATTENDING PHYSICIAN Internal Medicine; CONSULT PHYSICIAN Student in an Organized Health Care Education/Training Program; EMERGENCY PHYSICIAN Student in an Organized Health Care Education/Training Program; FAMILY PHYSICIAN Family Medicine
DX: I63.81 Other cerebral infarction due to occlusion or stenosis of small artery (principal); I16.0 Hypertensive urgency; E11.65 Type 2 diabetes mellitus with hyperglycemia; E66.9 Obesity, unspecified; I10 Essential (primary) hypertension; E78.5 Hyperlipidemia, unspecified; Z68.35 Body mass index [BMI] 35.0-35.9, adult; Z79.82 Long term (current) use of aspirin; Z79.84 Long term (current) use of oral hypoglycemic drugs
CPT/HCPCS: 70450; 70544; 70548; 70553; 72156; 80053; 80061; 82607; 82728; 82746; 82962; 83036; 83540; 83550; 84484; 85025; 85652; 86140; 86780; 93005; 93306; 96374; 97116; 97162; 97166; 97530; 99291; A9575; A9585

== ENCOUNTER 2024-01-15 08:35 | Outpatient (RCR) | payer OTHER, SELFPAY | END 2024-01-15 23:59 | disposition home or self-care (01) | LOC: ROT 08:35 | PROVIDERS: ATTENDING PHYSICIAN Nurse Practitioner Adult Health; FAMILY PHYSICIAN Family Medicine | DX: I69.398 Other sequelae of cerebral infarction (principal); R26.89 Other abnormalities of gait and mobility; Z73.6 Limitation of activities due to disability | CPT/HCPCS: 97166; 97535 ==